=== PATIENT | male | born 1975 | race Caucasian/White ===

== ENCOUNTER 2018-06-30 08:14 | Emergency (ER) | payer OTHER ==
[~2018-06-30] VITALS: Ht 182.9 cm; Wt 81.6 kg
[2018-06-30 08:16] VITALS: BP 157/89
--- NOTE | 2018-06-30 08:32 | ED NECK/BACK PAIN COMPLAINT ---
History of Present Illness General Chief Complaint: Low Back Pain/Injury Stated Complaint: BACK CRACKED PER PT Source: patient, family Exam Limitations: no limitations Vital Signs & Intake/Output Vital Signs & Intake/Output Vital Signs Date Time Temp Pulse Resp B/P B/P Pulse O2 O2 Flow FiO2 Mean Ox Delivery Rate 06/30 0816 98.1 64 18 157/89 98 Room Air Allergies Uncoded Allergies: MORH (Intermediate, VOMITING 01/12/14) Triage Note: PT STATES THAT ABOUT 1 HOUR AGOP WHEN PUTTING A BOX DOWN HE FELT SOMETHING CLICK IN HIS BACK AND SINCE HAS BEEN HAVING LOW BACK PAIN Triage Nurses Notes Reviewed? yes HPI: Patient presents for evaluation of low back pain that began suddenly at about 7: 30 this morning. Patient states he bent over to lift up some cardboard boxes and he felt a "crack" in his back. Since then he has had a constant severe sharp pain in his lower back that worsens with movement. He states he occasionally gets pain in the left knee as well. He otherwise denies numbness or loss of sensation of the lower extremities, he denies saddle paresthesias urinary or fecal incontinence or urinary retention. He denies any prior history of back pain. Past History Travel History Traveled to [place] past 21 day No Medical History Any Pertinent Medical History? 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 No Review of Systems Review of Systems Constitutional: Reports: no symptoms. Eyes: Reports: no symptoms. Ears, Nose, Throat, Mouth: Reports: no symptoms. Respiratory: Reports: no symptoms. Cardiovascular: Reports: no symptoms. Gastrointestinal/Abdominal: Reports: no symptoms. Musculoskeletal: Reports: see HPI. Skin: Reports: no symptoms. Neurological/Psychological: Reports: no symptoms. All Other Systems: Reviewed and Negative Physical Exam Physical Exam Neck: see below Comments: Gen.: Well-nourished, well-developed, no acute respiratory distress. Mild to moderate distress while at rest secondary to back pain. Pain worsens with movement. Head: Normocephalic, atraumatic. Eyes: Normal inspection bilaterally Ears: Normal inspection bilaterally Nose: Normal inspection Throat/mouth : Moist mucosa Neck: Supple, full range of motion, no goiter Lungs: Quiet respirations Back: Decreased range of motion secondary to pain. No tenderness over the lumbosacral spine, no associated soft tissue swelling ecchymoses or erythema. Extremities: Normal range of motion grossly, lower extremities: No straight leg raise sign, sensation intact bilaterally (no saddle paresthesias), deep tendon reflexes normal bilaterally, sensation to light touch intact bilaterally, normal strength. Neurologic: Cranial nerves grossly intact, speech is clear Skin: warm and dry Psychiatric: Calm, cooperative, no apparent delusions or hallucinations Core Measures CVA/TIA Diagnosis: No Progress Differential Diagnosis: cauda equina syn, herniated disc, myofascial strain, ARTHRITIS Plan of Care: Orders Procedure Date/time Status XRY-LUMBOSACRAL SPINE AP & LAT 06/30 831 Active Current Medications Sig/Cherie Start time Last Medication Dose Stop Time Status Admin Lorazepam 1 MG ONCE ONE 06/30 845 UNVr (Ativan) 06/30 846 Ketorolac 60 MG ONCE ONE 06/30 830 UNVr Tromethamine 06/30 831 (Toradol) Diagnostic Imaging: Discussed w/RAD: Radiology Read. Radiology Impression: PATIENT: VÍCTOR JEONG PRESENT AGE: 43 PATIENT ACCOUNT NO: [id number] : 74 LOCATION: [facility] ORDERING PHYSICIAN: Marc Howell MD SERVICE DATE: 06/30/18 EXAM TYPE: RAD - XRY-LUMBOSACRAL SPINE AP & LAT EXAMINATION: XR LUMBOSACRAL SPINE CLINICAL INFORMATION: Low back pain COMPARISON: None TECHNIQUE: 3 views of the lumbosacral spine were obtained. FINDINGS: The lumbar vertebra have normal height and alignment. No evidence of spondylolysis, spondylolisthesis or vertebral compression fracture. At L5-S1, there is [id number] loss of disc space, vacuum disc phenomenon and apparent calcification in the region of the posterior annulus or posterior longitudinal ligament. The sacrum and sacroiliac joints are normal. No acute abnormality. IMPRESSION: - No evidence of fracture or malalignment in the lumbar spine. - Chronically degenerated L5-S1 disc as manifest by loss of disc height and vacuum disc phenomenon. DICTATED BY: Davion Toledo MD DATE/TIME DICTATED:06/30/18905 CAPACITOR TESTER:WALLY DATE/ TIME TRANSCRIBED:06/30/18905 CONFIDENTIAL, DO NOT COPY WITHOUT APPROPRIATE AUTHORIZATION. <Electronically signed in Other Vendor System> SIGNED BY: Davion Toledo MD 06/30/18911 Comments: 06/30/2018 9:40:46 AM VÍCTOR is beginning to feel better. I have notified him of the possible disc disease noted on x-ray. He will follow up with his primary care physician. Departure Departure Disposition: HOME OR SELF CARE Condition: Stable Clinical Impression Primary Impression: Back strain Qualifiers: Encounter type: initial encounter Qualified Code: S39.012A - Strain of muscle, fascia and tendon of lower back, initial encounter Referrals: Juventino VILLARREAL,Sherwin Contreras (PCP/Family) Additional Instructions: Rest, no exertion or heavy lifting. Tramadol as needed for pain, Flexeril as needed for muscle spasms. [place] if needed for pain. Cool compresses to the areas of pain over the next 48 hours. Follow-up with your primary care physician on Monday for reevaluation. Return if any concerns or sudden worsening. Please note that there might be incidental findings in your evaluation that are unrelated to the current emergency department visit. Please notify your primary care doctor about this emergency department visit in order to obtain and review all of the testing performed so that these incidental findings can be monitored as needed. If you had an x-ray performed, please understand that some fractures or other findings may not be seen on the initial set of x-rays. If your symptoms persist you might need a repeat set of x-rays to check for such a fracture. If you had a laceration evaluated, please understand that foreign bodies such as glass or wood may not be visible to the naked eye or on plain x-rays. If the wound becomes red, swollen, increasingly more painful or if there is any drainage from the wound, please have it reevaluated by a physician for the possibility of a retained foreign body. If you're unable to follow up as outlined in the discharge instructions please return to the emergency department. Thank you for choosing the [facility] Emergency Department for your care. It was a pleasure to serve you today. Marc Howell M.D. [facility] Departure Forms: Customer Survey General Discharge Information Prescriptions: Current Visit Scripts Ketorolac Tromethamine 1 TAB PO Q6P PRN BACK PAIN #16 TAB PATIENT WAS TREATED WITH im KETOROLAC IN THE EMERGENCY DEPARTMENT Cyclobenzaprine HCl 1 TAB PO Q8P #21 TAB Hydrocodone/Acetaminophen ([place] 5-325 Tablet) 1-2 TAB PO Q6P PRN pain #16 TAB
--- NOTE | 2018-06-30 09:12 | RADIOLOGY REPORT ---
EXAMINATION: XR LUMBOSACRAL SPINE CLINICAL INFORMATION: Low back pain COMPARISON: None TECHNIQUE: 3 views of the lumbosacral spine were obtained. FINDINGS: The lumbar vertebra have normal height and alignment. No evidence of spondylolysis, spondylolisthesis or vertebral compression fracture. At L5-S1, there is dude-[id number] loss of disc space, vacuum disc phenomenon and apparent calcification in the region of the posterior annulus or posterior longitudinal ligament. The sacrum and sacroiliac joints are normal. No acute abnormality. IMPRESSION: - No evidence of fracture or malalignment in the lumbar spine. - Chronically degenerated L5-S1 disc as manifest by loss of disc height and vacuum disc phenomenon.
[2018-06-30] MEDS ORDERED: CYCLOBENZAPRINE10 M1 PO (09:43)
[2018-06-30] MEDS ORDERED: KETOROLAC TROME10 M1 PO ×2 (09:43→10:51)
[2018-06-30] MEDS ORDERED: NORCO 5-325 TA1 EACH PO (09:43)
== END 2018-06-30 09:55 ==
LOC: ERH 08:14
DX: S39.012A Strain of muscle, fascia and tendon of lower back, initial encounter (principal); X58.XXXA Exposure to other specified factors, initial encounter; Y93.89 Activity, other specified
CPT/HCPCS: 72100; 96372; J1885